=== PATIENT | female | born 1960 | race Caucasian/White ===

== ENCOUNTER 2017-11-07 10:12 | Observation (INO) | payer BC ==
[2017-11-07] MEDS ORDERED: Sodium Chloride 0.9% 1,000 ML IV ONE (10:51)
[2017-11-07] MEDS ORDERED: Ondansetron 4 MG/2 ML SDV IVPUSH PRN (11:21)
[2017-11-07] MEDS ORDERED: Alum Hydrox/Mag Hydrox/Simeth 30 ML, Lidocaine 2% 15 ML PO ONE ×2 (11:21)
[2017-11-07] MEDS ORDERED: Acetaminophen 325 MG Tab PO PRN (12:12)
[2017-11-07] MEDS ORDERED: Ondansetron 4 MG/2 ML SDV IV PRN (12:12)
[2017-11-07] MEDS ORDERED: Docusate Sodium 100 MG Cap PO PRN (12:12)
[2017-11-07] MEDS ORDERED: Temazepam 15 MG Cap PO PRN (12:12)
[2017-11-07] MEDS ORDERED: Enoxaparin 30 MG/0.3 ML Syringe SUBCUT SCH (12:15)
--- NOTE | 2017-11-07 12:22 | EDM.PDOC ---
ED HPI GENERAL MEDICAL PROBLEM - General Chief Complaint: Gastrointestinal Problem Stated Complaint: NAUSOUS/VOMITTING/ Time Seen by Provider: 11/07/17 10:49 Source of Information: Reports: Patient History Limitations: Reports: No Limitations - History of Present Illness INITIAL COMMENTS - FREE TEXT/NARRATIVE: Debi is a 57 yo female who presents to the ER via private vehicle with complaints of abdomina pain. She states the pain started Tuesday evening and has been present since. Admits it seems to wax and wane and at its worst, it is an 8 out of 10. She states she began vomiting Tuesday evenign as well and hasn' t been able to keep anything down. States last bowel movement was 2 days ago, which typically she will go daily. She admits the pain is right in the upper middle aspect of her abdomen and is tender if she pushes there. She typically does drink coffee every morning with diet coke's thru out the day. States now the vomit is brownish tinged and water. Denies any bloody stools or vomit. States she still is passing some gas but quite diminished. Denies any fevers or chills. Denies any diarrhea leading up to current symptoms. Still has gallbladder and appendix. Upper Abdomen Pain Score (Numeric/FACES): 5 - Related Data Allergies Allergy/AdvReac Type Severity Reaction Status Date / Time No Known Allergies Allergy Verified 11/07/17 10:25 Home Meds: Home Meds Sertraline [Zoloft] 50 mg PO DAILY 11/07/17 [History] Past Medical History Respiratory History: Reports: Asthma Psychiatric History: Reports: Anxiety - Past Surgical History HEENT Surgical History: Reports: Cataract Surgery GI Surgical History: Reports: None Social & Family History - Family History Family Medical History: Noncontributory - Tobacco Use Smoking Status *Q: Never Smoker - Caffeine Use Caffeine Use: Reports: Coffee - Alcohol Use Days Per Week of Alcohol Use: 2 Number of Drinks Per Day: 2 Total Drinks Per Week: 4 - Recreational Drug Use Recreational Drug Use: No ED ROS GENERAL - Review of Systems Review Of Systems: See Below Constitutional: Reports: Decreased Appetite. Denies: Fever, Chills HEENT: Reports: No Symptoms Respiratory: Reports: No Symptoms Cardiovascular: Reports: No Symptoms GI/Abdominal: Reports: Abdominal Pain, Nausea, Vomiting. Denies: Bloody Stool, Diarrhea, Distension, Flatus, Hematemesis, Hematochezia : Reports: No Symptoms. Denies: Dysuria, Hematuria, Irregular Menses Musculoskeletal: Reports: No Symptoms Skin: Reports: No Symptoms Neurological: Reports: No Symptoms ED EXAM, GI/ABD - Physical Exam Exam: See Below Exam Limited By: No Limitations General Appearance: Alert, No Apparent Distress Eyes: Bilateral: Normal Appearance Ears: Normal External Exam, Normal Canal, Hearing Grossly Normal, Normal TMs Nose: Normal Inspection, Normal Mucosa, No Blood Throat/Mouth: Normal Inspection, Normal Lips, Normal Teeth, Normal Gums, Normal Oropharynx, Normal Voice, No Airway Compromise Head: Atraumatic, Normocephalic Neck: Normal Inspection, Supple, Non-Tender, Full Range of Motion. No: Lymphadenopathy (L), Lymphadenopathy (R) Respiratory/Chest: No Respiratory Distress, Lungs Clear, Normal Breath Sounds, No Accessory Muscle Use Cardiovascular: Normal Peripheral Pulses, Regular Rate, Rhythm, No Edema, No Murmur GI/Abdominal Exam: Soft, No Organomegaly, No Mass, Tender (epigastric region, directly under xiphoid process), Abnormal Bowel Sounds (hypoactive). No: Rigid Back Exam: Normal Inspection Extremities: Normal Inspection, No Pedal Edema, Normal Capillary Refill Neurological: Alert, Oriented, Normal Cognition, No Motor/Sensory Deficits Psychiatric: Normal Affect, Normal Mood Skin Exam: Warm, Dry, Intact, Normal Color, No Rash Course - Vital Signs Last Recorded V/S: Last Vital Signs Temp 99.3 F 11/07/17 11:54 Pulse 61 11/07/17 11:54 Resp 16 11/07/17 11:54 BP 143/67 H 11/07/17 11:54 Pulse Ox 98 11/07/17 11:54 - Orders/Labs/Meds Orders: Active Orders 24 hr Category Date Time Status Abdomen 2V AP Flat Upright [CR] Stat Exams 11/07/17 11:11 Taken AMYLASE [CHEM] Stat Lab 11/07/17 11:11 Ordered BMP [BASIC METABOLIC PANEL,BMP] [CHEM] Stat Lab 11/07/17 11:07 Stop Req C-REACTIVE PROTEIN [CHEM] Stat Lab 11/07/17 11:11 Ordered COMPREHENSIVE METABOLIC PN,CMP [CHEM] Stat Lab 11/07/17 11:11 Ordered LACTIC ACID [CHEM] Stat Lab 11/07/17 11:11 Ordered MAGNESIUM [CHEM] Stat Lab 11/07/17 11:11 Ordered UA W/MICROSCOPIC [URIN] Stat Lab 11/07/17 10:52 Ordered Ondansetron [Zofran] Med 11/07/17 11:21 Active 4 mg IVPUSH Q6H PRN Medication Orders Acetaminophen (Tylenol) 650 mg PO Q4H PRN PRN Reason: Pain (Mild 1-3)/fever Docusate Sodium (Colace) 100 mg PO BID PRN PRN Reason: Constipation Enoxaparin Sodium (Lovenox) 30 mg SUBCUT Q24H [facility] Sodium Chloride (Normal Saline) 1,000 mls @ 125 mls/hr IV ASDIRECTED K[facility]US Non-Formulary Medication (Sertraline [Zoloft]) 50 mg PO DAILY [facility] Ondansetron HCl (Zofran) 4 mg IVPUSH Q6H PRN PRN Reason: Nausea/Vomiting Last Admin: 11/07/17 11:25 Dose: 4 mg Ondansetron HCl (Zofran) 4 mg IV Q4H PRN PRN Reason: Nausea/Vomiting Pantoprazole Sodium (Protonix Iv) 40 mg IVPUSH Q24H [facility] Temazepam (Restoril) 15 mg PO BEDTIME PRN PRN Reason: Sleep Labs: Laboratory Tests 11/07/17 Range/Units 11:07 WBC 9.0 (5.0-10.0) 10^3/uL RBC 4.72 (4.00-5.50) 10^6/uL Hgb 13.9 (12.0-16.0) g/dL Hct 42.7 (37.0-47.0) % MCV 90.5 (82.0-94.0) fL MCH 29.4 (27.0-32.0) pg MCHC 32.6 L (33.0-38.0) g/dL RDW Coeff of Janice 12.5 (11.0-15.0) % Plt Count 281 (150-400) 10^3/uL Neut % (Auto) 73.2 (35-85) % Lymph % (Auto) 19.3 (10-55) % [place] % (Auto) 6.1 (0-16) % Eos % (Auto) 1.0 (0-5) % Baso % (Auto) 0.4 (0-3) % Neut # (Auto) 6.60 (1.80-7.00) 10^3/uL Lymph # (Auto) 1.74 (1.00-4.80) 10^3/uL [place] # (Auto) 0.55 (0.00-0.80) 10^3/uL Eos # (Auto) 0.09 (0.00-0.45) 10^3/uL Baso # (Auto) 0.04 10^3/uL Meds: Medications Generic Name Dose Route Start Last Admin Trade Name Freq PRN Reason Stop Dose Admin Acetaminophen 650 mg 11/07/17 12:12 Tylenol PO Q4H PRN Pain (Mild 1-3)/fever Docusate Sodium 100 mg 11/07/17 12:12 Colace PO BID PRN Constipation Enoxaparin Sodium 30 mg 11/07/17 12:15 Lovenox SUBCUT Q24H [facility] Sodium Chloride 1,000 mls @ 125 mls/hr 11/07/17 12:15 Normal Saline IV ASDIRECTED K[facility]US Non-Formulary Medication 50 mg 11/08/17 08:00 Sertraline [Zoloft] PO DAILY K[facility]US Ondansetron HCl 4 mg 11/07/17 11:21 11/07/17 11:25 Zofran IVPUSH 4 mg Q6H PRN Administration Nausea/Vomiting Ondansetron HCl 4 mg 11/07/17 12:12 Zofran IV Q4H PRN Nausea/Vomiting Pantoprazole Sodium 40 mg 11/07/17 12:15 Protonix Iv IVPUSH Q24H [facility] Temazepam 15 mg 11/07/17 12:12 Restoril PO BEDTIME PRN Sleep Discontinued Medications Generic Name Dose Route Start Last Admin Trade Name Freq PRN Reason Stop Dose Admin Al Hydroxide/Mg Hydroxide 30 0 ml 11/07/17 11:21 ml/ Lidocaine HCl 15 ml PO 11/07/17 11:22 ONETIME ONE Sodium Chloride 1,000 mls @ 999 mls/hr 11/07/17 10:51 11/07/17 11:00 Normal Saline IV 11/07/17 11:51 999 mls/hr .BOLUS ONE Administration Departure - Departure Time of Disposition: 11:35 Disposition: Refer to Observation Condition: Good Clinical Impression: Abdominal pain - Discharge Information *PRESCRIPTION DRUG MONITORING PROGRAM REVIEWED*: No *COPY OF PRESCRIPTION DRUG MONITORING REPORT IN PATIENT LISY: No - Problem List & Annotations (1) Abdominal pain SNOMED Code(s): 93271865 Code(s): R10.9 - UNSPECIFIED ABDOMINAL PAIN Status: Acute Current Visit: Yes - Problem List Review Problem List Initiated/Reviewed/Updated: Yes - My Orders Last 24 Hours: My Active Orders 11/07/17 10:52 UA W/MICROSCOPIC [URIN] Stat 11/07/17 11:07 BMP [BASIC METABOLIC PANEL,BMP] [CHEM] Stat 11/07/17 11:11 Abdomen 2V AP Flat Upright [CR] Stat AMYLASE [CHEM] Stat C-REACTIVE PROTEIN [CHEM] Stat COMPREHENSIVE METABOLIC PN,CMP [CHEM] Stat LACTIC ACID [CHEM] Stat MAGNESIUM [CHEM] Stat 11/07/17 11:21 Ondansetron [Zofran] 4 mg IVPUSH Q6H PRN - Assessment/Plan Admission H&P: Please use this note as an admission H&P Last 24 Hours: My Active Orders 11/07/17 10:52 UA W/MICROSCOPIC [URIN] Stat 11/07/17 11:07 BMP [BASIC METABOLIC PANEL,BMP] [CHEM] Stat 11/07/17 11:11 Abdomen 2V AP Flat Upright [CR] Stat AMYLASE [CHEM] Stat C-REACTIVE PROTEIN [CHEM] Stat COMPREHENSIVE METABOLIC PN,CMP [CHEM] Stat LACTIC ACID [CHEM] Stat MAGNESIUM [CHEM] Stat 11/07/17 11:21 Ondansetron [Zofran] 4 mg IVPUSH Q6H PRN Plan: Will direct admit to Dr. Copeland's services under observation for further evaluation and work-up. Will give IV fluids, Protonix and Zofran at this time. Flat and upright films showed no air fluid levels or significance in dilated loops. Unable to get back chem panel d/t lab machine being down. Dr. Copeland consulted and agreed with admission. Debi transferred to floor in satisfactory condition.
[2017-11-07] MEDS: Pantoprazole 40 MG Vial IVPUSH SCH (13:30)
[2017-11-07] MEDS: Sodium Chloride 0.9% 1,000 ML IV SCH (16:57)
[2017-11-07] MEDS ORDERED: cefTRIAXone 1 GM Vial IVPUSH SCH (20:00)
[2017-11-07] MEDS ORDERED: SERTRALINE 50 MG PO SCH (20:00)
--- NOTE | 2017-11-07 20:13 | PCM.SN ---
- Free Text/Narrative Note: Notified by nursing staff that UA was completed. UA positive. Will get urine culture and start antibiotics.
[2017-11-08] MEDS: Sodium Chloride 0.9% 1,000 ML IV SCH ×2 (02:43→10:44)
[2017-11-08 08:43] LABS: CHLORIDE,CL 108 mEq/L (98-106); SODIUM,NA 141 mEq/L (136-145)
[2017-11-08] MEDS: Pantoprazole 40 MG Vial IVPUSH SCH (12:11)
--- NOTE | 2017-11-08 21:00 | PCM.DCSUM1 ---
Discharge Summary - Hospital Course Free Text/Narrative:: Debi presented to the ER with complaints of abdominal pain. Had been experiencing pain since Tuesday evening. Pain does wax and wane, mostly noted in the midepigastric area. She started vomiting that evening and admits her appetite has been poor and she has had a difficult time keeping anything down. Does admit that she drinks a fair amount of caffeine every day. Was concerned as the emesis was brown tinged. Had a BM 2 days ago, no blood noted in stools. Initial labs normal. Admitted and started on IV fluids and Protonix. Diagnosis: Stroke: No Modified [place] Scale: No Symptoms at All Modified [place] Scale Score: 0 - Discharge Data Discharge Date: 11/08/17 Discharge Disposition: Home, Self-Care 01 Condition: Good - Patient Summary/Data Complications: none Hospital Course: Patient has had good improvement of her symptoms since admit. Low grade fevers last night, afebrile this am. Feels like the pain is improved. No nausea. She did tolerate clear liquids and were able to advance to full liquids and tolerated well. Was noted to have a UTI, culture ordered. Started on Rocephin last evening. Up and ambulatory today. - Patient Instructions Diet: Usual Diet as Tolerated Activity: As Tolerated - Discharge Plan *PRESCRIPTION DRUG MONITORING PROGRAM REVIEWED*: No *COPY OF PRESCRIPTION DRUG MONITORING REPORT IN PATIENT LISY: No Prescriptions/Med Rec: Cefuroxime Axetil [Ceftin] 250 mg PO BID #20 tablet Pantoprazole Sodium [Protonix] 40 mg PO DAILY #30 tablet. Home Medications: Home Meds Sertraline [Zoloft] 50 mg PO DAILY 11/07/17 [History] Cefuroxime Axetil [Ceftin] 250 mg PO BID #20 tablet 11/08/17 [Rx] Pantoprazole Sodium [Protonix] 40 mg PO DAILY #30 tablet. 11/08/17 [Rx] Patient Handouts: Urinary Tract Infection, Adult Forms: ED Department Discharge Referrals: Gemma Luna PA [ED Midlevel Provider] - (Follow up with Leslie Luna in one week) - Discharge Summary/Plan Comment DC Time >30 min.: No Discharge Summary/Plan Comment: Discharge home Start Protonix daily Ceftin for UTI Follow up in 2 weeks for hospital follow up. Will determine if further need for EGD at that time. - General Info Date of Service: 11/08/17 Admission Dx/Problem (Free Text: Midepigastric Pain UTI Functional Status: Reports: Pain Controlled, Tolerating Diet, Ambulating - Review of Systems General: Reports: Malaise. Denies: Fever, Weakness, Fatigue HEENT: Reports: No Symptoms Pulmonary: Denies: Shortness of Breath, Cough Cardiovascular: Denies: Chest Pain, Palpitations Gastrointestinal: Reports: Abdominal Pain. Denies: Nausea, Vomiting Genitourinary: Reports: No Symptoms Musculoskeletal: Reports: No Symptoms Skin: Reports: No Symptoms Neurological: Reports: No Symptoms - Patient Data Vitals - Most Recent: Last Vital Signs Temp 98.9 F 11/08/17 11:29 Pulse 55 L 11/08/17 11:29 Resp 14 11/08/17 11:29 BP 135/74 11/08/17 11:29 Pulse Ox 96 11/08/17 11:29 Weight - Most Recent: 212 lb 9.6 oz I&O - Last 24 hours: Intake & Output 11/08/17 11/08/17 11/08/17 06:59 14:59 22:59 Intake Total 1000 1000 Balance 1000 1000 Lab Results - Last 24 hrs: Laboratory Results - last 24 hr 11/08/17 11/08/17 Range/Units 07:25 07:25 WBC 7.1 (5.0-10.0) 10^3/uL RBC 4.07 (4.00-5.50) 10^6/uL Hgb 12.0 (12.0-16.0) g/dL Hct 37.6 (37.0-47.0) % MCV 92.4 (82.0-94.0) fL MCH 29.5 (27.0-32.0) pg MCHC 31.9 L (33.0-38.0) g/dL RDW Coeff of Janice 12.4 (11.0-15.0) % Plt Count 242 (150-400) 10^3/uL Neut % (Auto) 52.2 (35-85) % Lymph % (Auto) 36.3 (10-55) % [place] % (Auto) 7.1 (0-16) % Eos % (Auto) 3.8 (0-5) % Baso % (Auto) 0.6 (0-3) % Neut # (Auto) 3.70 (1.80-7.00) 10^3/uL Lymph # (Auto) 2.57 (1.00-4.80) 10^3/uL [place] # (Auto) 0.50 (0.00-0.80) 10^3/uL Eos # (Auto) 0.27 (0.00-0.45) 10^3/uL Baso # (Auto) 0.04 10^3/uL Sodium 141 (136-145) mEq/L Potassium 3.6 (3.5-5.0) mEq/L Chloride 108 H (98-106) mEq/L Carbon Dioxide 27 (21-32) mmol/L BUN 11 (7-18) mg/dL Creatinine 0.8 (0.6-1.0) mg/dL Est Cr Clr Drug Dosing 80.15 mL/min Estimated GFR (MDRD) > 60 (>=60) mL/min Glucose 86 (75-99) mg/dL Calcium 7.9 L (8.4-10.1) mg/dL Total Bilirubin 0.4 (0.0-1.0) mg/dL AST 11 L (15-37) U/L ALT 18 (12-78) U/L Alkaline Phosphatase 72 (46-116) U/L Total Protein 6.5 (6.4-8.2) g/dL Albumin 3.0 L (3.4-5.0) g/dL AMBER Results - Last 24 hrs: Microbiology 11/07/17 22:43 Urine Culture - Preliminary Urine, Voided NO GROWTH AFTER 1 DAY Med Orders - Current: Current Medications Discontinued Medications Acetaminophen (Tylenol) 650 mg PO Q4H PRN PRN Reason: Pain (Mild 1-3)/fever Last Admin: 11/07/17 16:56 Dose: 650 mg Ceftriaxone Sodium (Rocephin) 1 gm IVPUSH Q24H [facility] Last Admin: 11/07/17 21:16 Dose: 1 gm Al Hydroxide/Mg Hydroxide 30 (ml/ Lidocaine HCl 15 ml) 0 ml PO ONETIME ONE Stop: 11/07/17 11:22 Last Admin: 11/07/17 13:34 Dose: Not Given Docusate Sodium (Colace) 100 mg PO BID PRN PRN Reason: Constipation Sodium Chloride (Normal Saline) 1,000 mls @ 999 mls/hr IV .BOLUS ONE Stop: 11/07/17 11:51 Last Admin: 11/07/17 11:00 Dose: 999 mls/hr Sodium Chloride (Normal Saline) 1,000 mls @ 125 mls/hr IV ASDIRECTED [facility] Last Admin: 11/08/17 10:44 Dose: 125 mls/hr Ptom Sertraline ([Zoloft] 50 Mg Tab) 50 mg PO BEDTIME [facility] Last Admin: 11/07/17 19:34 Dose: 50 mg Ondansetron HCl (Zofran) 4 mg IVPUSH Q6H PRN PRN Reason: Nausea/Vomiting Last Admin: 11/07/17 11:25 Dose: 4 mg Ondansetron HCl (Zofran) 4 mg IV Q4H PRN PRN Reason: Nausea/Vomiting Pantoprazole Sodium (Protonix Iv) 40 mg IVPUSH DAILY@1200 [facility] Last Admin: 11/08/17 12:11 Dose: 40 mg Temazepam (Restoril) 15 mg PO BEDTIME PRN PRN Reason: Sleep - Exam General: Reports: Alert, Oriented HEENT: Reports: Mucous Membr. Moist/[place] Neck: Reports: Supple Lungs: Reports: Clear to Auscultation, Normal Respiratory Effort Cardiovascular: Reports: Regular Rate, Regular Rhythm GI/Abdominal Exam: Normal Bowel Sounds, Soft, Non-Tender Skin: Reports: Warm, Dry Neurological: Reports: No New Focal Deficit
== END 2017-11-08 12:54 | disposition home or self-care (01) ==
LOC: CC.ED 10:12 → EDBD 10:12 → CC.MS 11:53 → UNDOADMOB 11:53 → CC.MS 12:12
PROVIDERS: ADMIT Physician Assistant Medical; ATTEND Family Medicine
DX: R10.13 Epigastric pain (principal); N39.0 Urinary tract infection, site not specified; Z79.899 Other long term (current) drug therapy
CPT/HCPCS: 36415; 74019; 80053; 81001; 82150; 83735; 85025; 86140; 87086; 96360; 96361; 96374; 96375; 96376; 99284; A9270-GY; C9113; G0378; J0696; J2405; J7030

== ENCOUNTER 2018-08-05 12:55 | Emergency (ER) | payer BC ==
--- NOTE | 2018-08-05 13:14 | EDM.PDOC ---
ED HPI GENERAL MEDICAL PROBLEM - General Chief Complaint: Respiratory Problem Stated Complaint: "bronchial and sinus infections and ache all over Time Seen by Provider: 08/05/18 13:14 Source of Information: Reports: Patient History Limitations: Reports: No Limitations - History of Present Illness INITIAL COMMENTS - FREE TEXT/NARRATIVE: Debi is a 58 year old female who presents to the Ed with c/o cough, sinus congestion, and generalized aches. She was seen in the clinic yesterday and was started on Ceftin by Jannie MILLER for sinusitis. She reports she feels he has worsened since that time. Reports she feels short of breath and just hurts all over. Denies fever, but does have low grade in ED. Has been eating and drinking ok, but reports she coughs to the point she vomits. Has been taking Ceftin as prescribed and also using Delsym cough medicine. Treatments PCA: Reports: Other (see below) Other Treatments PCA: saw Jannie Benavidez in the clinic yesterday "I ache all over" Pain Score (Numeric/FACES): 8 - Related Data Allergies Allergy/AdvReac Type Severity Reaction Status Date / Time No Known Allergies Allergy Verified 08/05/18 13:15 Home Meds: Home Meds Sertraline [Zoloft] 100 mg PO DAILY 11/07/17 [History] Cefuroxime Axetil [Ceftin] 500 mg PO BID 08/05/18 [History] Past Medical History Respiratory History: Reports: Asthma Psychiatric History: Reports: Anxiety - Past Surgical History HEENT Surgical History: Reports: Cataract Surgery GI Surgical History: Reports: None Social & Family History - Family History Family Medical History: Noncontributory - Caffeine Use Caffeine Use: Reports: Coffee ED ROS GENERAL - Review of Systems Review Of Systems: ROS reveals no pertinent complaints other than HPI. ED EXAM, GENERAL - Physical Exam Exam: See Below Exam Limited By: No Limitations General Appearance: Alert, WD/WN, No Apparent Distress Eye Exam: Bilateral Eye: Normal Fundi, Normal Inspection, PERRL Ears: Normal External Exam, Normal Canal, Hearing Grossly Normal, Normal TMs Nose: Nasal Swelling, Nasal Drainage, Other (tenderness over bialteral maxillary sinus) Throat/Mouth: Normal Inspection, Normal Lips, Normal Teeth, Normal Gums, Normal Oropharynx, Normal Voice, No Airway Compromise Head: Atraumatic, Normocephalic Neck: Normal Inspection, Supple, Non-Tender, Full Range of Motion Respiratory/Chest: No Respiratory Distress, Lungs Clear, Normal Breath Sounds, No Accessory Muscle Use, Chest Non-Tender Cardiovascular: Normal Peripheral Pulses, Regular Rate, Rhythm, No Edema, No Gallop, No JVD, No Murmur, No Rub GI/Abdominal: Normal Bowel Sounds, Soft, Non-Tender, No Organomegaly, No Distention, No Abnormal Bruit, No Mass Extremities: Normal Inspection, Normal Range of Motion, Non-Tender, Normal Capillary Refill, No Pedal Edema Neurological: Alert, Oriented, CN II-XII Intact, Normal Cognition, Normal Gait, Normal Reflexes, No Motor/Sensory Deficits Lymphatic: No Adenopathy Course - Vital Signs Last Recorded V/S: Last Vital Signs Temp 99.9 F 08/05/18 13:05 Pulse 84 08/05/18 13:05 Resp 20 08/05/18 13:05 BP 129/81 08/05/18 13:05 Pulse Ox 98 08/05/18 13:05 - Orders/Labs/Meds Orders: Active Orders 24 hr Category Date Time Status Chest 2V [CR] Stat Exams 08/05/18 13:21 Taken Sodium Chloride 0.9% [Normal Saline] 1,000 ml Med 08/05/18 13:58 Active IV .BOLUS Medication Orders Sodium Chloride (Normal Saline) 1,000 mls @ 999 mls/hr IV .BOLUS ONE Stop: 08/05/18 14:58 Labs: Laboratory Tests 08/05/18 08/05/18 Range/Units 13:35 13:35 WBC 7.2 (5.0-10.0) 10^3/uL RBC 4.67 (4.00-5.50) 10^6/uL Hgb 14.1 (12.0-16.0) g/dL Hct 42.1 (37.0-47.0) % MCV 90.1 (82.0-94.0) fL MCH 30.2 (27.0-32.0) pg MCHC 33.5 (33.0-38.0) g/dL RDW Coeff of Janice 12.7 (11.0-15.0) % Plt Count 206 (150-400) 10^3/uL Neut % (Auto) 74.1 (35-85) % Lymph % (Auto) 15.1 (10-55) % [place] % (Auto) 8.9 (0-16) % Eos % (Auto) 1.5 (0-5) % Baso % (Auto) 0.4 (0-3) % Neut # (Auto) 5.35 (1.80-7.00) 10^3/uL Lymph # (Auto) 1.09 (1.00-4.80) 10^3/uL [place] # (Auto) 0.64 (0.00-0.80) 10^3/uL Eos # (Auto) 0.11 (0.00-0.45) 10^3/uL Baso # (Auto) 0.03 10^3/uL Sodium 139 (136-145) mEq/L Potassium 4.2 (3.5-5.0) mEq/L Chloride 103 (98-106) mEq/L Carbon Dioxide 27 (21-32) mmol/L BUN 12 (7-18) mg/dL Creatinine 1.1 H (0.6-1.0) mg/dL Est Cr Clr Drug Dosing 57.61 mL/min Estimated GFR (MDRD) 51 L (>=60) mL/min Glucose 110 H D (75-99) mg/dL Calcium 8.8 (8.4-10.1) mg/dL C-Reactive Protein 2.1 H (0.2-0.8) mg/dL Meds: Medications Generic Name Dose Route Start Last Admin Trade Name Freq PRN Reason Stop Dose Admin Sodium Chloride 1,000 mls @ 999 mls/hr 08/05/18 13:58 Normal Saline IV 08/05/18 14:58 .BOLUS ONE - Re-Assessments/Exams Free Text/Narrative Re-Assessment/Exam: 08/05/18 14:05 Discussed lab and CXR findings with patient. Labs all stable. No obvious infiltrate on CXR. Creatinine 1.1. Did order IV fluids, however patient wishes to just go home. Departure - Departure Time of Disposition: 14:08 Disposition: Home, Self-Care 01 Condition: Good Clinical Impression: Upper respiratory infection with cough and congestion - Discharge Information *PRESCRIPTION DRUG MONITORING PROGRAM REVIEWED*: Not Applicable *COPY OF PRESCRIPTION DRUG MONITORING REPORT IN PATIENT LISY: Not Applicable Instructions: Upper Respiratory Infection, Adult Referrals: PCP,Unknown [Primary Care Provider] - Forms: ED Department Discharge Additional Instructions: 1) Continue Ceftin as previously prescribed 2) Alternate Tylenol and ibuprofen every 3-4 hours as needed for fever/ discomfort 3) Rest and push fluids 4) Decongestants/cough suppressants as needed 5) Follow up if symptoms worsen or do not improve over the next week - My Orders Last 24 Hours: My Active Orders 08/05/18 13:21 Chest 2V [CR] Stat 08/05/18 13:58 Sodium Chloride 0.9% [Normal Saline] 1,000 ml IV .BOLUS - Assessment/Plan Last 24 Hours: My Active Orders 08/05/18 13:21 Chest 2V [CR] Stat 08/05/18 13:58 Sodium Chloride 0.9% [Normal Saline] 1,000 ml IV .BOLUS
[2018-08-05] MEDS ORDERED: Sodium Chloride 0.9% 1,000 ML IV ONE (13:58)
== END 2018-08-05 14:15 | disposition home or self-care (01) ==
LOC: CC.ED 12:55
DX: J06.9 Acute upper respiratory infection, unspecified (principal); F41.9 Anxiety disorder, unspecified; Z79.899 Other long term (current) drug therapy
CPT/HCPCS: 36415; 71046; 80048; 85025; 86140; 87804; 99283-25